=== PATIENT | female | born 1935 | race Caucasian/White ===

== ENCOUNTER 2022-05-23 13:16 | Inpatient (IN) ==
--- NOTE | 2022-05-23 14:12 | XRay Report ---
INDICATION: cough TECHNIQUE: AP portable semiupright chest x-ray COMPARISON: Previous chest x-rays dated 10/07/2010, 10/02/2009 FINDINGS: Lungs:Mild bilateral, bibasilar infiltrates. Findings may be due to volume loss. Pneumonia is possible. No focal parenchymal consolidation or mass. Heart, vascular:No significant cardiomegaly. Pulmonary vascularity is normal. No pulmonary edema or pulmonary congestion Mediastinum, bernardo:No mediastinal widening. No hilar mass Pleura:No pleural fluid. No pleural-based mass or calcification Skeletal:Negative. IMPRESSION: Bibasilar parenchymal density are consistent with volume loss or pneumonia. Follow-up recommended Interpreted and Authenticated by: Bishop Camejo 05/23/22
[2022-05-23] MEDS ORDERED: SODIUM CHLORIDE IV ONE (14:15)
[2022-05-23] MEDS ORDERED: cefTRIAXone 2 GM in DEXTROSE 5% IN WATER 50 ML IV ONE (14:15)
[2022-05-23] MEDS ORDERED: AZITHROMYCIN 500 MG in DEXTROSE 5% IN WATER 250 ML IV ONE (14:15)
[2022-05-23] MEDS ORDERED: IPRATROPIUM/ALBUTEROL 3 ML AMPUL.NEB NEB ONE ×2 (14:15→19:11)
[2022-05-23 14:18] LABS: POC Calcium, Ionized 1.07 (1.16-1.32); POC Creatinine 0.4 (0.6-1.2); POC Potassium 4.3 (3.3-5.1)
[2022-05-23] MEDS ORDERED: KETOROLAC 30 MG/ML VIAL IV ONE (14:43)
--- NOTE | 2022-05-23 14:52 | Emergency Department Note ---
HPI General Chief complaint: Cold/Flu Symptoms Stated complaint: Cough Time Seen by Provider: 05/23/22 13:47 Source: patient Mode of arrival: ambulatory Limitations: no limitations History of Present Illness HPI Narrative: Narrative: Patient presents to ED with complaints of flulike symptoms x4 days. She reports cough, sputum production that is abdul, shortness of breath and decreased energy. She denies any known sick contacts, vomiting, diarrhea, abdominal pain, wheezing, stridor, cardiac chest pain, heart palpitation, hemoptysis, headache, vision changes. She denies any [id number] medication. Patient has any other alleviating or aggravating factors Related Data Home Medications Medication Instructions Recorded Confirmed aspirin 325 mg tablet 325 mg PO QDAY 10/24/15 04/29/22 cyanocobalamin (vitamin B-12) 500 500 mcg PO QDAY 10/24/15 04/29/22 mcg tablet (Vitamin B-12) flaxseed oil 1,000 mg capsule 1,000 mg PO 5XD 10/24/15 04/29/22 verapamil 240 mg tablet,extended 240 mg PO QPM 10/22/21 04/29/22 release vitamins A,C,H-vlrt-ecnhrd 14,320 1 cap PO BID 10/22/21 04/29/22 unit-226 mg-200 unit capsule (PreserVision AREDS) Previous Rx's Medication Instructions Recorded Poise Pads #180 ea 04/09/21 rosuvastatin 10 mg tablet See Rx Instructions .Route 03/20/22 .COMPLEX #90 tabs Allergies Allergy/AdvReac Type Severity Reaction Status Date / Time atorvastatin [From Lipitor] AdvReac Unknown Myalgia Verified 04/29/22 10:33 codeine AdvReac Unknown Unknown Verified 04/29/22 10:33 Review of Systems ROS ROS Narrative: Narrative: All systems ED: reviewed and negative except as stated. [facility] Narrative Patient History Narrative: Narrative: Medical/Surgical/Family History All Active Problems (Updated 05/23/22 @ 16:54 by Tone Leos DO) Bilateral pneumonia (Acute) Acute respiratory failure with hypoxia (Acute) Sepsis (Acute) Abrasion, right great toe, initial encounter (Acute) Need for assistance due to unsteady gait (Chronic) Urine incontinence (Chronic) Arthritis (Chronic) Spondylolisthesis (Chronic) Obesity (BMI 30-39.9) (Chronic) DDD (degenerative disc disease), lumbar (Chronic) HTN (hypertension) (Chronic) Acquired spondylolisthesis (Chronic) Hyponatremia (Chronic) Anemia (Chronic) BMI 34.0-34.9,adult (Chronic) Peripheral vascular disease (Chronic) Osteopenia (Chronic) Osteoarthritis (Chronic) Obesity (Chronic) Macrocytosis (Chronic) Factor V Leiden mutation (Chronic) Kyphosis (Chronic) Essential hypertension (Chronic) Hyperlipidemia (Chronic) Hypercalcemia (Chronic) Diabetes mellitus, type II (Chronic) Back pain (Chronic) Medical History Acquired spondylolisthesis Actinic keratosis x2 Anemia Arthritis Back pain low back pain with left leg sciatic Blood glucose elevated BMI 34.0-34.9,adult Bronchitis Candidal intertrigo resolved -10/16/20 Colon adenoma remote Declines colonoscopy -04/09/21 Contusion (04/29/13) right hand DDD (degenerative disc disease), lumbar Diabetes mellitus, type II Diet controlled -10/16/20, 04/09/21 -5.7% 10/22/21 A1c 5.4% -10/16/20 Dysmetabolic syndrome X Dyspnea Essential hypertension Factor V Leiden mutation Fatigue Frequent headaches Gastroenteritis HTN (hypertension) Hypercalcemia Hyperlipidemia Hyponatremia Kyphosis Macrocytosis Obesity Obesity (BMI 30-39.9) Osteoarthritis Osteopenia Peripheral vascular disease Proteinuria Reactive airway disease Sciatica of left side Spondylolisthesis Unspecified sinusitis (chronic) Urine incontinence stress, urgency -10/16/20 Decline medication trial for fear of side effects Pads UTI (urinary tract infection) Surgical History History of cataract surgery bilateral History of cholecystectomy (~2000) History of colonoscopy (09/12/08) Hyperplastic polyp History of left hip replacement 1997 and 2000, bilateral - [facility] History of right hip replacement 1997 and 1999, bilateral - [facility] Status post biopsy of skin (05/09/13) Hypertrophic Actinic Keratosis 07/25/13 -Right jaw: Dermal Scar Status post left knee replacement 2018, total - [facility] Status post right knee replacement (~1999) 1998, total - [facility] Family History Unknown Coronary artery disease Factor V Leiden mutation 3 of her 6 children have it and likely that a granddaughter at age 10 from this Pulmonary embolism Premature secondary to Pulmonary Embolus Father Myocardial Infarction Mother Malignant neoplasm of pancreas Social History Smoking Status: Never smoker Alcohol Intake Frequency: does not drink Substance Use: does not use Exam Narrative Narrative: Narrative: General Limitations: no limitations General appearance: Present in no apparent distress ENT ENT: Present normal oropharynx and mucous membranes moist Neck Neck: Present normal inspection; Absent meningismus Chest Chest: Present normal inspection; Absent tenderness Respiratory Respiratory: Present normal lung sounds bilaterally; Absent respiratory distress or wheezes Cardiovascular Cardiovascular: Present normal rhythm and tachycardia Adbominal Abdominal: Present soft; Absent tenderness Extremities Extremities: Present normal capillary refill Neurological Neurological: Present oriented X3 and normal gait Psychiatric Psychiatric: Present normal affect and normal mood Skin Skin: Present warm (WNL) and intact Course Course Course Narrative: Patient was evaluated for complaints of shortness of breath. Negative for COVID and for flu. Chest x-ray obtained with image reviewed myself which show bilateral basilar pneumonia. Blood cultures were obtained. Patient was given IV Rocephin azithromycin. Lactic acid was elevated so patient was bolused some IV fluids. After fluids patient's lactic acid returned within normal limits. Patient was given a breathing treatment but unfortunately her oxygen saturation continued to drop to 87% on room air. She required 1 L of oxygen via nasal cannula. Recommended patient be admitted for acute hypoxic respiratory failure secondary to pneumonia with sepsis. Case was discussed with hospitalist agreed to admit the patient. Plan of care was discussed with patient expressed verbal understanding agreement Reevaluation(s) Reevaluation #1: Patient remains hemodynamic stable. No new complaints at this time. Time: 14:45 Consultations Consultation #1: Case discussed with hospitalist was agreed to admit the patient. Time: 16:54 Vital Signs Vital signs: Vital Signs Temperature 99.4 F H 05/23/22 13:31 Pulse Rate 100 H 05/23/22 13:31 Respiratory Rate 14 05/23/22 13:31 Blood Pressure 157/69 05/23/22 13:31 Pulse Oximetry (%) 89 L 05/23/22 13:31 Oxygen Delivery Method 05/23/22 13:31 Temperature 99.4 F H 05/23/22 13:31 Pulse Rate 86 05/23/22 16:49 Respiratory Rate 14 05/23/22 13:31 Blood Pressure 133/59 05/23/22 16:49 Pulse Oximetry (%) 87 L 05/23/22 16:49 Oxygen Delivery Method 05/23/22 16:16 Oxygen Flow Rate (L/min) 1 05/23/22 16:16 MDM MDM Narrative Medical decision making narrative: Narrative: Differential Diagnosis Differential Diagnosis: Viral URI, pneumonia, PE Medical Records Medical records reviewed: Yes I reviewed the patient's medical records. Lab Data Lab results reviewed: Yes I reviewed the patient's lab results. Result diagrams: 05/23/22 14:12 Labs: Lab Results 05/23/22 05/23/22 05/23/22 Range/Units 14:12 14:12 14:13 WBC 12.4 H (4.5-11.0) K/mcL RBC 4.08 (3.59-5.38) M/mcL Hgb 13.6 (11.2-15.7) g/dL Hct 40.3 (34.1-44.9) % POC Hct 42.0 (36-48) MCV 98.8 (80.0-100.0) fL MCH 33.3 (26.0-34.0) pg MCHC 33.7 (31.0-36.0) g/dL RDW 12.0 (11.5-14.5) % Plt Count 361 (140-440) K/mcL MPV 10.2 (8.8-12.5) fL Immature Gran % (Auto) 0.8 H (0.0-0.5) % Neut % (Auto) 83.2 H (38.0-78.0) % Lymph % (Auto) 5.8 L (15.5-49.0) % [place] % (Auto) 10.0 (1.0-12.0) % Eos % (Auto) 0 (0.0-7.0) % Baso % (Auto) 0.2 (0.0-2.0) % Lymph # (Auto) 0.72 L (1.50-4.80) K/mcL [place] # (Auto) 1.23 H (0.10-0.90) K/mcL Eos # (Auto) 0 (0.00-0.70) K/mcL Baso # (Auto) 0.03 (0.00-0.30) K/mcL Immature Gran # 0.10 H (0.00-0.05) K/mcl Absolute Neutrophils 10.28 H (1.80-8.00) K/mcL POC VBG pH 7.48 H (7.32-7.42) POC VBG pCO2 at Temp 40.0 L (41-51) POC VBG pO2 39 (25-40) POC VBG HCO3 30.1 H (24-28) POC VBG Total CO2 31.0 H (25-29) POC Venous O2 Sat 77.0 H (40-70) POC VBG Base Excess 7.0 H* (-2-2) VBG Lactic Acid 2.4 H (0.5-2) POC Sodium 133 (133-145) POC Potassium 4.3 (3.3-5.1) POC Chloride 98 (96-108) POC Total CO2 28.0 (22-30) POC BUN 20 (6-20) POC Creatinine 0.4 L (0.6-1.2) POC Glucose 171 H (70-105) POC WB Ioniz Calcium 1.07 L (1.16-1.32) 05/23/22 Range/Units 16:36 WBC (4.5-11.0) K/mcL RBC (3.59-5.38) M/mcL Hgb (11.2-15.7) g/dL Hct (34.1-44.9) % POC Hct (36-48) MCV (80.0-100.0) fL MCH (26.0-34.0) pg MCHC (31.0-36.0) g/dL RDW (11.5-14.5) % Plt Count (140-440) K/mcL MPV (8.8-12.5) fL Immature Gran % (Auto) (0.0-0.5) % Neut % (Auto) (38.0-78.0) % Lymph % (Auto) (15.5-49.0) % [place] % (Auto) (1.0-12.0) % Eos % (Auto) (0.0-7.0) % Baso % (Auto) (0.0-2.0) % Lymph # (Auto) (1.50-4.80) K/mcL [place] # (Auto) (0.10-0.90) K/mcL Eos # (Auto) (0.00-0.70) K/mcL Baso # (Auto) (0.00-0.30) K/mcL Immature Gran # (0.00-0.05) K/mcl Absolute Neutrophils (1.80-8.00) K/mcL POC VBG pH 7.39 (7.32-7.42) POC VBG pCO2 at Temp 41.1 (41-51) POC VBG pO2 42 H (25-40) POC VBG HCO3 24.8 (24-28) POC VBG Total CO2 26.0 (25-29) POC Venous O2 Sat 76.0 H (40-70) POC VBG Base Excess 0 (-2-2) VBG Lactic Acid 0.8 (0.5-2) POC Sodium (133-145) POC Potassium (3.3-5.1) POC Chloride (96-108) POC Total CO2 (22-30) POC BUN (6-20) POC Creatinine (0.6-1.2) POC Glucose (70-105) POC WB Ioniz Calcium (1.16-1.32) ED POC Tests ED POC Tests: JEFERSON - Influenza A Negative JEFERSON - Influenza B Negative JEFERSON - SARS Antigen Negative Radiology Data Radiology results reviewed: Yes I reviewed the patient's radiology results. Radiology results narrative: Chest x-ray obtained with image reviewed myself, I agree with radiologist rotation EKG Data EKG #1: EKG attestation: Yes I reviewed and interpreted this EKG. EKG shows normal: sinus rhythm Rate: normal Rhythm: NSR Hanahan/QRS: RBBB and LAHB/LAFB Heart block present: None ST segment elevation in: None ST segment depression in: None QTc: normal QRS morphology: Present normal Interpretation: no acute changes Core Measures AMI Core Measures Followed: Yes Discharge Plan Patient/Caregiver Discharge Instructions Pt seen by PET ADOPTION COUNSELOR/PA only: No Clinical Impression: Acute respiratory failure with hypoxia Bilateral pneumonia Qualifiers: Pneumonia type: due to unspecified organism Lung location: unspecified part of lung Qualified Code(s): J18.9 - Pneumonia, unspecified organism Sepsis Qualifiers: Sepsis type: sepsis due to unspecified organism Sepsis acute organ dysfunction status: with acute organ dysfunction Severe sepsis acute organ dysfunction type: acute respiratory failure Acute respiratory failure type: with hypoxia Severe sepsis shock status: without septic shock Qualified Code(s): A41.9 - Sepsis, unspecified organism Patient Disposition: Xfer As Outpt/Obs ([facility]) Condition: Fair Follow up with: Moriah Puentes ARNP [Primary Care Provider] - Prescriptions: No Action rosuvastatin 10 mg tablet See Rx Instructions .ROUTE .COMPLEX Qty: 90 3RF Dose Instruction: TAKE ONE TABLET BY MOUTH AT BEDTIME Rx Instructions: TAKE ONE TABLET BY MOUTH AT BEDTIME aspirin 325 mg tablet 325 mg PO QDAY flaxseed oil 1,000 mg capsule 1,000 mg PO 5XD cyanocobalamin (vitamin B-12) [Vitamin B-12] 500 mcg tablet 500 mcg PO QDAY (DME) Poise Pads See Rx Instructions .Route .MEDSUPPLY Qty: 180 3RF Rx Instructions: Change when soiled verapamil 240 mg tablet extended release 240 mg PO QPM PreserVision AREDS [id number] capsule 1 cap PO BID
[2022-05-23 15:50] LABS: Basophils # (Auto) 0.03 K/mcL (0.00-0.30); Basophils % (Auto) 0.2 % (0.0-2.0); Eosinophils # (Auto) 0 K/mcL (0.00-0.70); Eosinophils % (Auto) 0 % (0.0-7.0); Hematocrit 40.3 % (34.1-44.9); Hemoglobin 13.6 g/dL (11.2-15.7); Lymphocytes # (Auto) 0.72 K/mcL (1.50-4.80); Lymphocytes % (Auto) 5.8 % (15.5-49.0); Mean Cell Volume 98.8 fL (80.0-100.0); Mean Corpuscular HGB Conc 33.7 g/dL (31.0-36.0); Mean Platelet Volume 10.2 fL (8.8-12.5); Monocytes # (Auto) 1.23 K/mcL (0.10-0.90); Neutrophils % (Auto) 83.2 % (38.0-78.0); Platelet Count 361 K/mcL (140-440); RBC 4.08 M/mcL (3.59-5.38); WBC 12.4 K/mcL (4.5-11.0)
--- NOTE | 2022-05-23 16:57 | Internal Med History&Physical ---
HPI History of Present Illness Patient information: Note initiated : 05/23/22 at 4:57 pm Service Date, if different from initiated Date: [] Patient: Linden Galeana a 86 y/o F admitted on for Cough. Chief Complaint: [] History of present illness: Ms. Galeana is a 86 year old F Presents the ED with weakness, shortness of breath, productive cough. Patient states that Thursday she started developing cold symptoms which had progressively gotten worse. She has developed cough productive yellow-green sputum, she developed shortness of breath and increasing weakness. She said family members have been ill recently as well. Work-up in the ED revealed bilateral pneumonia. She she had initial lactate of 2.4. She was hypoxic and 87%. She had a mild leukocytosis. Elevated BUN to creatinine ratio. And tachycardic. Patient started on IV fluids and antibiotics in ED. Follow-up lactate. Review of Systems: Pertinent positives as above. Denies headache/fever/chills/nausea/vomiting/chest or abdominal pain/diarrhea. Remaining 10 point review of system reviewed negative PFSH PFSH All Active Problems (Updated 05/23/22 @ 16:54 by Tone Leos DO) Bilateral pneumonia (Acute) Acute respiratory failure with hypoxia (Acute) Sepsis (Acute) Abrasion, right great toe, initial encounter (Acute) Need for assistance due to unsteady gait (Chronic) Urine incontinence (Chronic) Arthritis (Chronic) Spondylolisthesis (Chronic) Obesity (BMI 30-39.9) (Chronic) DDD (degenerative disc disease), lumbar (Chronic) HTN (hypertension) (Chronic) Acquired spondylolisthesis (Chronic) Hyponatremia (Chronic) Anemia (Chronic) BMI 34.0-34.9,adult (Chronic) Peripheral vascular disease (Chronic) Osteopenia (Chronic) Osteoarthritis (Chronic) Obesity (Chronic) Macrocytosis (Chronic) Factor V Leiden mutation (Chronic) Kyphosis (Chronic) Essential hypertension (Chronic) Hyperlipidemia (Chronic) Hypercalcemia (Chronic) Diabetes mellitus, type II (Chronic) Back pain (Chronic) Medical History Acquired spondylolisthesis Actinic keratosis x2 Anemia Arthritis Back pain low back pain with left leg sciatic Blood glucose elevated BMI 34.0-34.9,adult Bronchitis Candidal intertrigo resolved -10/16/20 Colon adenoma remote Declines colonoscopy -04/09/21 Contusion (04/29/13) right hand DDD (degenerative disc disease), lumbar Diabetes mellitus, type II Diet controlled -10/16/20, 04/09/21 -5.7% 10/22/21 A1c 5.4% -10/16/20 Dysmetabolic syndrome X Dyspnea Essential hypertension Factor V Leiden mutation Fatigue Frequent headaches Gastroenteritis HTN (hypertension) Hypercalcemia Hyperlipidemia Hyponatremia Kyphosis Macrocytosis Obesity Obesity (BMI 30-39.9) Osteoarthritis Osteopenia Peripheral vascular disease Proteinuria Reactive airway disease Sciatica of left side Spondylolisthesis Unspecified sinusitis (chronic) Urine incontinence stress, urgency -10/16/20 Decline medication trial for fear of side effects Pads UTI (urinary tract infection) Surgical History History of cataract surgery bilateral History of cholecystectomy (~2000) History of colonoscopy (09/12/08) Hyperplastic polyp History of left hip replacement 1997 and 2000, bilateral - [facility] History of right hip replacement 1997 and 1999, bilateral - [facility] Status post biopsy of skin (05/09/13) Hypertrophic Actinic Keratosis 07/25/13 -Right jaw: Dermal Scar Status post left knee replacement 2018, total - [facility] Status post right knee replacement (~1999) 1998, total - [facility] Family History Unknown Coronary artery disease Factor V Leiden mutation 3 of her 6 children have it and likely that a granddaughter at age 10 from this Pulmonary embolism Premature secondary to Pulmonary Embolus Father Myocardial Infarction Mother Malignant neoplasm of pancreas Social History household members: spouse housing: house lives independently: Yes marital status: occupational status: retired occupation: Hairdresser-retired physical activity: none smoking status: Never smoker alcohol intake frequency: does not drink substance use type: does not use MEDS/ALLERGIES Home Medications and Allergies Home Medications Medication Instructions Recorded Confirmed Type aspirin 325 mg tablet 325 mg PO QDAY 10/24/15 05/23/22 History cyanocobalamin (vitamin B-12) 500 500 mcg PO QDAY 10/24/15 05/23/22 History mcg tablet (Vitamin B-12) flaxseed oil 1,000 mg capsule 1,000 mg PO 5XD 10/24/15 05/23/22 History Poise Pads #180 ea 04/09/21 05/23/22 Rx verapamil 240 mg tablet,extended 240 mg PO QPM 10/22/21 05/23/22 History release vitamins A,C,T-bkij-irxhyt 14,320 1 cap PO BID 10/22/21 05/23/22 History unit-226 mg-200 unit capsule (PreserVision AREDS) rosuvastatin 10 mg tablet See Rx Instructions .Route 03/20/22 05/23/22 Rx .COMPLEX #90 tabs Allergies Allergy/AdvReac Type Severity Reaction Status Date / Time atorvastatin [From Lipitor] AdvReac Unknown Myalgia Verified 04/29/22 10:33 codeine AdvReac Unknown Unknown Verified 04/29/22 10:33 EXAM Constitutional Vitals: Temp Pulse Resp BP Pulse Ox O2 Del Method O2 Flow Rate 99.4 F H 86 14 133/59 87 L 1 05/23/22 13:31 05/23/22 16:49 05/23/22 13:31 05/23/22 16:49 05/23/22 16:49 05/23/22 16:16 05/23/22 16:16 Exam: General: Alert, Awake, No acute Distress Eyes/N/T: EOMI, PERRL, dry MM Head/Neck: neck supple, normocephalic atraumatic CV: RRR, No murmurs, normal s1/s2 Pulm: Rhonchi and wheezing b/l, Abd: soft, nontender, +BS x4 Ext: no clubbing/cyanosis, mild b/l LE edema Neuro: Alert, no focal deficits, moves all extremities, CN 2-12 grossly intact, symmetrical strength b/l upper/lower, sensations intact b/l upper/lower Skin: warm/dry DATA Data Completed and Pending Labs: Labs from last 24 hours 05/23/22 05/23/22 05/23/22 16:36 14:13 14:12 WBC RBC Hgb Hct POC Hct 42.0 MCV MCH MCHC RDW Plt Count MPV Immature Gran % (Auto) Neut % (Auto) Lymph % (Auto) [place] % (Auto) Eos % (Auto) Baso % (Auto) Lymph # (Auto) [place] # (Auto) Eos # (Auto) Baso # (Auto) Immature Gran # Absolute Neutrophils POC VBG pH 7.39 7.48 H POC VBG pCO2 at Temp 41.1 40.0 L POC VBG pO2 42 H 39 POC VBG HCO3 24.8 30.1 H POC VBG Total CO2 26.0 31.0 H POC Venous O2 Sat 76.0 H 77.0 H POC VBG Base Excess 0 7.0 H* VBG Lactic Acid 0.8 2.4 H POC Sodium 133 POC Potassium 4.3 POC Chloride 98 POC Total CO2 28.0 POC BUN 20 POC Creatinine 0.4 L POC Glucose 171 H POC WB Ioniz Calcium 1.07 L 05/23/22 14:12 WBC 12.4 H RBC 4.08 Hgb 13.6 Hct 40.3 POC Hct MCV 98.8 MCH 33.3 MCHC 33.7 RDW 12.0 Plt Count 361 MPV 10.2 Immature Gran % (Auto) 0.8 H Neut % (Auto) 83.2 H Lymph % (Auto) 5.8 L [place] % (Auto) 10.0 Eos % (Auto) 0 Baso % (Auto) 0.2 Lymph # (Auto) 0.72 L [place] # (Auto) 1.23 H Eos # (Auto) 0 Baso # (Auto) 0.03 Immature Gran # 0.10 H Absolute Neutrophils 10.28 H POC VBG pH POC VBG pCO2 at Temp POC VBG pO2 POC VBG HCO3 POC VBG Total CO2 POC Venous O2 Sat POC VBG Base Excess VBG Lactic Acid POC Sodium POC Potassium POC Chloride POC Total CO2 POC BUN POC Creatinine POC Glucose POC WB Ioniz Calcium A/P Narrative A/P Narrative: A: *Acute hypoxic respiratory failure: 2/2 PNA *PNA b/l: *Sepsis w/hyperlactatemia: *Generalized weakness: 2/2 above *Volume depletion: *HTN/HLD: Blood pressure elevated on admit *Obesity: BMI 32, lifestyle modification education * P: -Rocephin/azithromycin, pending SC -Strep/RVP pending, pct pending -O2 supplementation and wean as able -Pulmonary toilet, nebs -IVF -BC/chemistry follow-up -Continue home verapamil, prn IV -cont home aspirin/statin -PT/OT -ppx: Lovenox Time Spent With Patient Time: Total time spent is greater than 50% in coordination of care (as documented) at patient's floor/unit and/or counseling patient: Total time spent with greater than 50% in coordination of care (as documented) at patient's floor/unit and/or counseling patient:: Greater than 70 minutes
[2022-05-23] MEDS ORDERED: SENNOSIDES 1 TABLET PO PRN (19:11)
[2022-05-23] MEDS ORDERED: MAGNESIUM SULFATE 2 GM/50 ML BAG IV PRN (19:11)
[2022-05-23] MEDS ORDERED: cefTRIAXone 1 GM in DEXTROSE 5% IN WATER 50 ML IV SCH (19:11)
[2022-05-23] MEDS ORDERED: POLYETHYLENE GLYCOL 3350 17 GM PACKET PO PRN (19:11)
[2022-05-23] MEDS ORDERED: POTASSIUM CHLORIDE 40 MEQ in DEXTROSE 5% IN WATER 500 ML IV PRN (19:11)
[2022-05-23] MEDS ORDERED: ONDANSETRON 4 MG/2 ML VIAL IV PRN (19:11)
[2022-05-23] MEDS ORDERED: POTASSIUM CHLORIDE 20 MEQ TABLET PO PRN ×2 (19:11)
[2022-05-23] MEDS: 0.9 % SODIUM CHLORIDE 10 ML SYRINGE IV SCH (20:03)
[2022-05-23] MEDS: ATORVASTATIN 20 MG TABLET PO SCH (20:04)
[2022-05-23] MEDS: VERAPAMIL 120 MG TAB.XL.24H PO SCH (20:11)
[2022-05-23] MEDS: DOCUSATE SODIUM 100 MG CAPSULE PO SCH (20:12)
[2022-05-24] MEDS: ACETAMINOPHEN 325 MG TABLET PO PRN ×2 (04:57→20:56)
[2022-05-24] MEDS: 0.9 % SODIUM CHLORIDE 10 ML SYRINGE IV SCH ×3 (04:58→20:59)
[2022-05-24 06:59] LABS: ALT/SGPT 171 U/L (<40); AST/SGOT 162 U/L (<32); Albumin 2.6 gm/dL (3.2-5.2); Albumin/Globulin Ratio 0.7 (1.0-2.3); Alkaline Phosphatase 337 U/L (39-117); Bilirubin,Total 3.7 mg/dL (0.1-1.0); Blood Urea Nitrogen 13 mg/dL (8-23); Carbon Dioxide 24 mmol/L (22-30); Chloride 98 mmol/L (96-108); Globulin 3.7 gm/dL (2.2-3.7); Glomerular Filtration Rate 95; Glucose 114 mg/dL (70-105); Lactate Dehydrogenase 261 U/L (135-225); Phosphorous 1.9 mg/dL (2.5-4.5); Triglycerides 60 mg/dL (<150); Uric Acid 2.8 mg/dL (2.5-8.0)
[2022-05-24 07:12] LABS: Basophils # (Auto) 0.05 K/mcL (0.00-0.30); Basophils % (Auto) 0.5 % (0.0-2.0); Eosinophils # (Auto) 0.03 K/mcL (0.00-0.70); Eosinophils % (Auto) 0.3 % (0.0-7.0); Hematocrit 38.3 % (34.1-44.9); Lymphocytes # (Auto) 1.34 K/mcL (1.50-4.80); Mean Cell Volume 100.8 fL (80.0-100.0); Mean Corpuscular HGB Conc 33.9 g/dL (31.0-36.0); Mean Platelet Volume 9.9 fL (8.8-12.5); Monocytes # (Auto) 1.17 K/mcL (0.10-0.90); Monocytes % (Auto) 11.3 % (1.0-12.0); Platelet Count 260 K/mcL (140-440); Red Cell Distribution Width 12.5 % (11.5-14.5); WBC 10.3 K/mcL (4.5-11.0)
--- NOTE | 2022-05-24 08:02 | Internal Med Progress Note ---
SUBJECTIVE Subjective Patient information: Note initiated : 05/24/22 at 7:56 am Service Date, if different from initiated Date: [] Patient: Linden Galeana 86 y/o F admitted on 05/23/22 for Cough. Chief Complaint: [] Interval history: History of present illness: Ms. Galeana is a 86 year old F Presents the ED with weakness, shortness of breath, productive cough. Patient states that Thursday she started developing cold symptoms which had progressively gotten worse. She has developed cough productive yellow-green sputum, she developed shortness of breath and increasing weakness. She said family members have been ill recently as well. Work-up in the ED revealed bilateral pneumonia. She she had initial lactate of 2.4. She was hypoxic and 87%. She had a mild leukocytosis. Elevated BUN to creatinine ratio. And tachycardic. Patient started on IV fluids and antibiotics in ED. Follow-up lactate. 05/24 Had on and off sleep last night. Still requiring oxygen. She denies shortness of breath at rest still has productive cough. Transaminitis noted. Including hyperbilirubinemia mostly conjugated. Low Phos. Appears quite tired. Review of Systems: denies headache/fever/chills/nausea/vomiting/chest or abdominal pain/diarrhea. Otherwise see above. Constitutional Vitals: Vital Signs Temp Pulse Resp BP Pulse Ox O2 Del Method O2 Flow Rate 97.0 F 84 12 144/77 92 1 05/24/22 07:34 05/24/22 07:34 05/24/22 07:34 05/24/22 07:34 05/24/22 07:34 05/24/22 07:34 05/24/22 07:34 Period Temp Pulse Resp BP Sys/Serrano Pulse Ox O2 Del Method O2 Flow Rate Last 24 Hr 97.0 F-99.5 F 82-100 - 95-167/53-85 87-100 Nasal Cannula- Room Air 1-1 Intake and Output 05/23/22 05/24/22 05/24/22 19:59 03:59 11:59 Intake Total 1805 400 350 Output Total 1 2 Balance 1805 399 348 Weight 82.055 kg Intake & Output: Intake & Output 05/23/22 05/24/22 05/24/22 19:59 03:59 11:59 Intake Total 1805 400 350 Output Total 1 2 Balance 1805 399 348 Weight 82.055 kg Intake: IV 1805 Sodium Chloride 0.9% 1,505 ml @ 1505 3010 mls/hr IV .Q30M ONE Rx#: [id number] Zithromax 500 mg In Dextrose 5% 250 in Water 250 ml @ 250 mls/hr IV ONCE ONE Rx#:[id number] Rocephin 2 gm In Dextrose 5% in 50 Water 50 ml @ 100 mls/hr IV ONCE ONE Rx#:[id number] Oral 400 350 Output: # of times incontinent of urine 1 2 Exam: General: Awake but appears fatigued, No acute Distress Eyes/N/T: EOMI, Head/Neck: neck supple, CV: RRR, No murmurs, Pulm: Rhonchi and wheezing b/l improving, Abd: soft, nontender, +BS x4 Ext: no clubbing/cyanosis, mild b/l LE edema Neuro: Alert, no focal deficits, moves all extremities, Skin: warm/dry OBJ DATA Labs CBC & Chem 7: 05/24/22 05:42 05/24/22 05:42 Labs: Abnormal Lab Results 05/24/22 05/24/22 05/23/22 05:42 05:42 16:36 WBC MCV 100.8 H MCH 34.2 H Immature Gran % (Auto) 0.9 H Neut % (Auto) Lymph % (Auto) 13.0 L Lymph # (Auto) 1.34 L Arroyo # (Auto) 1.17 H Immature Gran # 0.09 H Absolute Neutrophils POC VBG pH POC VBG pCO2 at Temp POC VBG pO2 42 H POC VBG HCO3 POC VBG Total CO2 POC Venous O2 Sat 76.0 H POC VBG Base Excess VBG Lactic Acid Creatinine 0.4 L POC Creatinine Glucose 114 H POC Glucose POC WB Ioniz Calcium Phosphorus 1.9 L Total Bilirubin 3.7 H Direct Bilirubin 3.0 H GGT 136 H AST 162 H ALT 171 H Alkaline Phosphatase 337 H Lactate Dehydrogenase 261 H Albumin 2.6 L Albumin/Globulin Ratio 0.7 L Procalcitonin 05/23/22 05/23/22 05/23/22 16:33 14:13 14:12 WBC MCV MCH Immature Gran % (Auto) Neut % (Auto) Lymph % (Auto) Lymph # (Auto) Arroyo # (Auto) Immature Gran # Absolute Neutrophils POC VBG pH 7.48 H POC VBG pCO2 at Temp 40.0 L POC VBG pO2 POC VBG HCO3 30.1 H POC VBG Total CO2 31.0 H POC Venous O2 Sat 77.0 H POC VBG Base Excess 7.0 H* VBG Lactic Acid 2.4 H Creatinine POC Creatinine 0.4 L Glucose POC Glucose 171 H POC WB Ioniz Calcium 1.07 L Phosphorus Total Bilirubin Direct Bilirubin GGT AST ALT Alkaline Phosphatase Lactate Dehydrogenase Albumin Albumin/Globulin Ratio Procalcitonin 0.42 H 05/23/22 14:12 WBC 12.4 H MCV MCH Immature Gran % (Auto) 0.8 H Neut % (Auto) 83.2 H Lymph % (Auto) 5.8 L Lymph # (Auto) 0.72 L Arroyo # (Auto) 1.23 H Immature Gran # 0.10 H Absolute Neutrophils 10.28 H POC VBG pH POC VBG pCO2 at Temp POC VBG pO2 POC VBG HCO3 POC VBG Total CO2 POC Venous O2 Sat POC VBG Base Excess VBG Lactic Acid Creatinine POC Creatinine Glucose POC Glucose POC WB Ioniz Calcium Phosphorus Total Bilirubin Direct Bilirubin GGT AST ALT Alkaline Phosphatase Lactate Dehydrogenase Albumin Albumin/Globulin Ratio Procalcitonin Meds: Medications Acetaminophen (Acetaminophen 325 Mg Tablet) 650 mg PO Q6HP PRN; Protocol PRN Reason: Per Pain Protocol/Fever > 101 Last Admin: 05/24/22 04:57 Dose: 650 mg Albuterol/Ipratropium (Ipratropium/Albuterol 3 Ml Ampul.Neb) 3 ml NEB Q4HP PRN PRN Reason: Shortness Of Breath Aspirin (Aspirin 81 Mg Tab.Chew) 81 mg PO DAILY [facility] Atorvastatin Calcium (Atorvastatin 20 Mg Tablet) 20 mg PO HS [facility] Last Admin: 05/23/22 20:04 Dose: Not Given Ceftriaxone Sodium (Ceftriaxone 1 Gm Vial) 1 gm IV Q24H [facility] Cyanocobalamin (Cyanocobalamin (Vitamin B-12) 500 Mcg Tablet) 500 mcg PO QDAY [facility] Docusate Sodium (Docusate Sodium 100 Mg Capsule) 100 mg PO BID [facility] Last Admin: 05/23/22 20:12 Dose: 100 mg Potassium Chloride 40 meq/ (Dextrose) 520 mls @ 130 mls/hr IV UD PRN PRN Reason: Potassium < 3 Magnesium Sulfate (Magnesium Sulfate) 2 gm in 50 mls @ 50 mls/hr IV UD PRN PRN Reason: Magnesium </= 1.6 Azithromycin 500 mg/ Dextrose 250 mls @ 250 mls/hr IV Q24H [facility]; Protocol Stop: 05/25/22 11:59 Labetalol HCl (Labetalol 5 Mg/Ml Ml) 0 mg IV Q2HP PRN PRN Reason: Hypertension Ondansetron HCl (Ondansetron 4 Mg/2 Ml Vial) 4 mg IV Q4HP PRN PRN Reason: Nausea And Vomiting Polyethylene Glycol (Polyethylene Glycol 3350 17 Gm Packet) 17 gm PO DAILYP PRN PRN Reason: Constipation Potassium Chloride (Potassium Chloride 20 Meq Tablet) 40 meq PO UD PRN PRN Reason: Potssium is 3-3.5 Potassium Chloride (Potassium Chloride 20 Meq Tablet) 40 meq PO UD PRN PRN Reason: Potassium < 3 Senna (Sennosides 1 Tablet) 2 tab PO DAILYP PRN PRN Reason: Constipation Sodium Chloride (0.9 % Sodium Chloride 10 Ml Syringe) 10 ml IV Q8 [facility] Last Admin: 05/24/22 04:58 Dose: 10 ml Verapamil HCl (Verapamil 120 Mg Tab.Xl.24h) 240 mg PO HS [facility] Last Admin: 05/23/22 20:11 Dose: 240 mg A/P Narrative A/P Narrative: A: *Acute hypoxic respiratory failure: 2/2 PNA -now on 1L NC *PNA b/l: -elevated pct, strep neg *Sepsis w/hyperlactatemia: -improving *Generalized weakness: 2/2 above *Volume depletion: *HTN/HLD: Blood pressure elevated on admit *Obesity: BMI 32, lifestyle modification education *Macrocytosis: *Hypophosphatemia: *Transaminitis: P: -Rocephin/azithromycin, pending SC -pct pending -O2 supplementation and wean as able -Pulmonary toilet, nebs -BC/chemistry follow-up, monitor replace electrolytes -Check B12/folate -Hepatitis and liver ultrasound -Continue home verapamil, prn IV -cont home aspirin/statin -PT/OT -ppx: Lovenox Time Spent With Patient Time: Total time spent is greater than 50% in coordination of care (as documented) at patient's floor/unit and/or counseling patient: Total time spent with greater than 50% in coordination of care (as documented) at patient's floor/unit and/or counseling patient:: 35 - 50 minutes QUALITY VTE Deep Vein Thrombosis/Pulmonary Embolism Present on Admission: No
--- NOTE | 2022-05-24 10:12 | Discharge Summary ---
Discharge Provider Provider IMPORTANT FOLLOW-UP INFORMATION FOR PCP: Patient information: Note initiated : 05/24/22 at 10:11 am Service Date, if different from initiated Date: [] Patient: Linden Galeana 86 y/o F admitted on 05/23/22 for Cough. Chief Complaint: [] Date of admission: 05/23/22 19:00 Primary care physician: TERRIE aFirbanks Consults: 05/23/22 Consult to Physician [CONS] Stat Comment: Consulting Provider: [facility] [place] Reason For Exam: Physician to Consult COURSE Hospital Course Hospital course: History of present illness: Ms. Galeana is a 86 year old F Presents the ED with weakness, shortness of breath, productive cough. Patient states that Thursday she started developing cold symptoms which had progressively gotten worse. She has developed cough productive yellow-green sputum, she developed shortness of breath and increasing weakness. She said family members have been ill recently as well. Work-up in the ED revealed bilateral pneumonia. She she had initial lactate of 2.4. She was hypoxic and 87%. She had a mild leukocytosis. Elevated BUN to creatinine ratio. And tachycardic. Patient started on IV fluids and antibiotics in ED. Follow-up lactate. 05/24 Had on and off sleep last night. Still requiring oxygen. She denies shortness of breath at rest still has productive cough. Transaminitis noted. Including hyperbilirubinemia mostly conjugated. Low Phos. Appears quite tired. 05/25 Patient still feels quite weak and fatigued. Minimal oxygen requirement. We will hopefully wean off today. Still productive cough. Poor sleep last night. Hypophosphatemia transaminitis mildly improved. Suspect patient will need rehab. A: *Acute hypoxic respiratory failure: 2/2 PNA *PNA b/l: *Sepsis w/hyperlactatemia: *Generalized weakness: 2/2 above *Volume depletion: *HTN/HLD: Blood pressure elevated on admit *Obesity: BMI 32, lifestyle modification education *Macrocytosis: *Hypophosphatemia: *Transaminitis: P: -Abx Discharge diagnosis: Acute toxic respiratory failure pneumonia sepsis Secondary discharge diagnosis: Generalized weakness following depletion hypertension obesity macrocytosis hypophosphatemia transaminitis Time Spent with Patient Time attestation: Total time spent providing and/or coordinating discharge services: Time spent: Greater than 30 minutes EXAM Constitutional Vitals: Temp Pulse Resp BP Pulse Ox O2 Del Method O2 Flow Rate 97.0 F 84 12 144/77 92 1 05/24/22 07:34 05/24/22 07:34 05/24/22 07:34 05/24/22 07:34 05/24/22 07:34 05/24/22 07:34 05/24/22 07:34 Discharge Data Data Completed and Pending Labs on day of discharge: Labs from last 24 hours 05/24/22 05/24/22 05/24/22 08:27 08:25 08:25 WBC RBC Hgb Hct POC Hct MCV MCH MCHC RDW Plt Count MPV Immature Gran % (Auto) Neut % (Auto) Lymph % (Auto) Tate % (Auto) Eos % (Auto) Baso % (Auto) Lymph # (Auto) Tate # (Auto) Eos # (Auto) Baso # (Auto) Immature Gran # Absolute Neutrophils POC VBG pH POC VBG pCO2 at Temp POC VBG pO2 POC VBG HCO3 POC VBG Total CO2 POC Venous O2 Sat POC VBG Base Excess VBG Lactic Acid POC Sodium Sodium POC Potassium Potassium POC Chloride Chloride Carbon Dioxide POC Total CO2 Anion Gap POC BUN BUN Creatinine POC Creatinine GFR Calculation Glucose POC Glucose Uric Acid Calcium POC WB Ioniz Calcium Phosphorus Magnesium Total Bilirubin Direct Bilirubin GGT AST ALT Alkaline Phosphatase Lactate Dehydrogenase Total Protein Albumin Globulin Albumin/Globulin Ratio Triglycerides Vitamin B12 > 2000.0 H Folate 9.6 Procalcitonin Hepatitis A IgM Ab Pending Hep Bs Antigen Pending Hep B Core IgM Ab Pending Hepatitis C Antibody Pending Ur Strep pneumoniae Ag 05/24/22 05/24/22 05/24/22 05:42 05:42 05:42 WBC 10.3 RBC 3.80 Hgb 13.0 Hct 38.3 POC Hct MCV 100.8 H MCH 34.2 H MCHC 33.9 RDW 12.5 Plt Count 260 MPV 9.9 Immature Gran % (Auto) 0.9 H Neut % (Auto) 74.0 Lymph % (Auto) 13.0 L Tate % (Auto) 11.3 Eos % (Auto) 0.3 Baso % (Auto) 0.5 Lymph # (Auto) 1.34 L Tate # (Auto) 1.17 H Eos # (Auto) 0.03 Baso # (Auto) 0.05 Immature Gran # 0.09 H Absolute Neutrophils 7.63 POC VBG pH POC VBG pCO2 at Temp POC VBG pO2 POC VBG HCO3 POC VBG Total CO2 POC Venous O2 Sat POC VBG Base Excess VBG Lactic Acid POC Sodium Sodium 133 POC Potassium Potassium 3.6 POC Chloride Chloride 98 Carbon Dioxide 24 POC Total CO2 Anion Gap 11.0 POC BUN BUN 13 Creatinine 0.4 L POC Creatinine GFR Calculation 95 Glucose 114 H POC Glucose Uric Acid 2.8 Calcium 9.0 POC WB Ioniz Calcium Phosphorus 1.9 L Magnesium 2.0 Total Bilirubin 3.7 H Direct Bilirubin 3.0 H GGT 136 H AST 162 H ALT 171 H Alkaline Phosphatase 337 H Lactate Dehydrogenase 261 H Total Protein 6.3 Albumin 2.6 L Globulin 3.7 Albumin/Globulin Ratio 0.7 L Triglycerides 60 Vitamin B12 Folate Procalcitonin Hepatitis A IgM Ab Hep Bs Antigen Hep B Core IgM Ab Hepatitis C Antibody Ur Strep pneumoniae Ag Negative 05/23/22 05/23/22 05/23/22 17:50 16:36 16:33 WBC RBC Hgb Hct POC Hct MCV MCH MCHC RDW Plt Count MPV Immature Gran % (Auto) Neut % (Auto) Lymph % (Auto) Tate % (Auto) Eos % (Auto) Baso % (Auto) Lymph # (Auto) Tate # (Auto) Eos # (Auto) Baso # (Auto) Immature Gran # Absolute Neutrophils POC VBG pH 7.39 POC VBG pCO2 at Temp 41.1 POC VBG pO2 42 H POC VBG HCO3 24.8 POC VBG Total CO2 26.0 POC Venous O2 Sat 76.0 H POC VBG Base Excess 0 VBG Lactic Acid 1.2 0.8 POC Sodium Sodium POC Potassium Potassium POC Chloride Chloride Carbon Dioxide POC Total CO2 Anion Gap POC BUN BUN Creatinine POC Creatinine GFR Calculation Glucose POC Glucose Uric Acid Calcium POC WB Ioniz Calcium Phosphorus Magnesium Total Bilirubin Direct Bilirubin GGT AST ALT Alkaline Phosphatase Lactate Dehydrogenase Total Protein Albumin Globulin Albumin/Globulin Ratio Triglycerides Vitamin B12 Folate Procalcitonin 0.42 H Hepatitis A IgM Ab Hep Bs Antigen Hep B Core IgM Ab Hepatitis C Antibody Ur Strep pneumoniae Ag 05/23/22 05/23/22 05/23/22 14:13 14:12 14:12 WBC 12.4 H RBC 4.08 Hgb 13.6 Hct 40.3 POC Hct 42.0 MCV 98.8 MCH 33.3 MCHC 33.7 RDW 12.0 Plt Count 361 MPV 10.2 Immature Gran % (Auto) 0.8 H Neut % (Auto) 83.2 H Lymph % (Auto) 5.8 L Tate % (Auto) 10.0 Eos % (Auto) 0 Baso % (Auto) 0.2 Lymph # (Auto) 0.72 L Tate # (Auto) 1.23 H Eos # (Auto) 0 Baso # (Auto) 0.03 Immature Gran # 0.10 H Absolute Neutrophils 10.28 H POC VBG pH 7.48 H POC VBG pCO2 at Temp 40.0 L POC VBG pO2 39 POC VBG HCO3 30.1 H POC VBG Total CO2 31.0 H POC Venous O2 Sat 77.0 H POC VBG Base Excess 7.0 H* VBG Lactic Acid 2.4 H POC Sodium 133 Sodium POC Potassium 4.3 Potassium POC Chloride 98 Chloride Carbon Dioxide POC Total CO2 28.0 Anion Gap POC BUN 20 BUN Creatinine POC Creatinine 0.4 L GFR Calculation Glucose POC Glucose 171 H Uric Acid Calcium POC WB Ioniz Calcium 1.07 L Phosphorus Magnesium Total Bilirubin Direct Bilirubin GGT AST ALT Alkaline Phosphatase Lactate Dehydrogenase Total Protein Albumin Globulin Albumin/Globulin Ratio Triglycerides Vitamin B12 Folate Procalcitonin Hepatitis A IgM Ab Hep Bs Antigen Hep B Core IgM Ab Hepatitis C Antibody Ur Strep pneumoniae Ag Discharge Plan Patient/Caregiver Discharge Instructions Activity: increase activity as tolerated Diet: Regular Diet Prescriptions: Continued rosuvastatin 10 mg tablet See Rx Instructions .ROUTE .COMPLEX Qty: 90 3RF Dose Instruction: TAKE ONE TABLET BY MOUTH AT BEDTIME Rx Instructions: TAKE ONE TABLET BY MOUTH AT BEDTIME aspirin 325 mg tablet 325 mg PO QDAY flaxseed oil 1,000 mg capsule 1,000 mg PO 5XD cyanocobalamin (vitamin B-12) [Vitamin B-12] 500 mcg tablet 500 mcg PO QDAY (DME) Poise Pads See Rx Instructions .Route .MEDSUPPLY Qty: 180 3RF Rx Instructions: Change when soiled verapamil 240 mg tablet extended release 240 mg PO QPM PreserVision AREDS [id number],320-226-200 [id number] capsule 1 cap PO BID PreserVision AREDS 14,320-226-200 [id number] Capsule 1 cap PO DAILY Follow Up Plan Follow up with: Moriah Puentes ARNP [Primary Care Provider] - Patient Disposition: Home Health Service Prognosis: Fair Overall status at discharge: patient is progressing back to baseline QUALITY VTE Deep Vein Thrombosis/Pulmonary Embolism Present on Admission: No
[2022-05-24 10:15] LABS: Hepatitis B Surface Antigen Negative (Negative); Hepatitis C Virus Antibody Non-Reactive (Non-Reactive)
[2022-05-24] MEDS: CYANOCOBALAMIN (VITAMIN B-12) 500 MCG TABLET PO SCH (12:16)
[2022-05-24] MEDS: ASPIRIN 81 MG TAB.CHEW PO SCH (12:16)
[2022-05-24] MEDS: DOCUSATE SODIUM 100 MG CAPSULE PO SCH ×2 (12:17→20:56)
[2022-05-24] MEDS: cefTRIAXone 1 GM VIAL IV SCH (12:17)
[2022-05-24] MEDS: AZITHROMYCIN 500 MG in DEXTROSE 5% IN WATER 250 ML IV SCH (12:18)
--- NOTE | 2022-05-24 15:15 | Ultrasound Report ---
INDICATION: liver/GB - transaminitis, hyperbili TECHNIQUE: Grayscale and color flow Doppler spectral imaging COMPARISON: None. FINDINGS: Gallbladder:Previous cholecystectomy Common bile duct:No intra or extrahepatic bile duct dilatation.. Common bile duct measures3 mm Liver:No solid or cystic hepatic mass. Liver contour is smooth. No ascites. Liver is borderline enlarged. Liver [id number] cm Portal vein:Normal hepatopedal portal venous flow Pancreas:Visualized portions of the pancreas are normal IMPRESSION: 1. Previous cholecystectomy 2. No bile duct dilatation Interpreted and Authenticated by: Bishop Camejo 05/24/22
[2022-05-24] MEDS: BENZONATATE 100 MG CAPSULE PO PRN (19:07)
[2022-05-24] MEDS: ATORVASTATIN 20 MG TABLET PO SCH (19:25)
[2022-05-24] MEDS: IPRATROPIUM/ALBUTEROL 3 ML AMPUL.NEB NEB PRN (19:45)
[2022-05-24] MEDS ORDERED: SUCRETS LOZENGE PO ONE (20:42)
[2022-05-24] MEDS: VERAPAMIL 120 MG TAB.XL.24H PO SCH (20:56)
[2022-05-25] MEDS: BENZONATATE 100 MG CAPSULE PO PRN ×3 (02:03→18:01)
[2022-05-25] MEDS: LABETALOL 5 MG/ML ML IV PRN ×2 (04:20→17:58)
[2022-05-25] MEDS: 0.9 % SODIUM CHLORIDE 10 ML SYRINGE IV SCH ×4 (04:22→20:38)
[2022-05-25 07:23] LABS: ALT/SGPT 121 U/L (<40); AST/SGOT 70 U/L (<32); Albumin 2.4 gm/dL (3.2-5.2); Albumin/Globulin Ratio 0.7 (1.0-2.3); Alkaline Phosphatase 314 U/L (39-117); Bilirubin,Direct 0.6 mg/dL (<0.3); Blood Urea Nitrogen 9 mg/dL (8-23); Calcium 8.7 mg/dL (8.6-10.4); Carbon Dioxide 27 mmol/L (22-30); Chloride 97 mmol/L (96-108); Globulin 3.3 gm/dL (2.2-3.7); Glomerular Filtration Rate 95; Glucose 112 mg/dL (70-105); Lactate Dehydrogenase 177 U/L (135-225); Phosphorous 2.2 mg/dL (2.5-4.5); Triglycerides 111 mg/dL (<150); Uric Acid 2.7 mg/dL (2.5-8.0)
--- NOTE | 2022-05-25 07:49 | Internal Med Progress Note ---
SUBJECTIVE Subjective Patient information: Note initiated : 05/25/22 at 7:46 am Service Date, if different from initiated Date: [] Patient: Linden Galeana 86 y/o F admitted on 05/23/22 for Cough. Chief Complaint: [] Interval history: History of present illness: Ms. Galeana is a 86 year old F Presents the ED with weakness, shortness of breath, productive cough. Patient states that Thursday she started developing cold symptoms which had progressively gotten worse. She has developed cough productive yellow-green sputum, she developed shortness of breath and increasing weakness. She said family members have been ill recently as well. Work-up in the ED revealed bilateral pneumonia. She she had initial lactate of 2.4. She was hypoxic and 87%. She had a mild leukocytosis. Elevated BUN to creatinine ratio. And tachycardic. Patient started on IV fluids and antibiotics in ED. Follow-up lactate. 05/24 Had on and off sleep last night. Still requiring oxygen. She denies shortness of breath at rest still has productive cough. Transaminitis noted. Including hyperbilirubinemia mostly conjugated. Low Phos. Appears quite tired. 05/25 Patient still feels quite weak and fatigued. Minimal oxygen requirement. We will hopefully wean off today. Still productive cough. Poor sleep last night. Hypophosphatemia transaminitis mildly improved. Suspect patient will need rehab. Review of Systems: denies headache/fever/chills/nausea/vomiting/chest or abdominal pain/diarrhea. Otherwise see above. Constitutional Vitals: Vital Signs Temp Pulse Resp BP Pulse Ox O2 Del Method O2 Flow Rate 97.1 F 79 20 143/70 94 1 05/25/22 07:16 05/25/22 07:16 05/25/22 07:16 05/25/22 07:16 05/25/22 07:16 05/25/22 07:16 05/25/22 07:16 Period Temp Pulse Resp BP Sys/Serrano Pulse Ox O2 Del Method O2 Flow Rate Last 24 Hr 97.1 F-98.5 F 66-79 14-20 92-156/52-70 93-96 Nasal Cannula- Nasal Cannula 0.5-1 Intake and Output 05/24/22 05/25/22 05/25/22 19:59 03:59 11:59 Intake Total 490 500 400 Output Total 2 1 Balance 488 499 400 Weight 82.724 kg Intake & Output: Intake & Output 05/24/22 05/25/22 05/25/22 19:59 03:59 11:59 Intake Total 490 500 400 Output Total 2 1 Balance 488 499 400 Weight 82.724 kg Intake: IV 250 Zithromax 500 mg In Dextrose 5% 250 in Water 250 ml @ 250 mls/hr IV Q24H [facility] Rx#:[id number] Oral 240 500 400 Output: # of times incontinent of urine 2 1 Other: Meal Dinner Percent of Meal Consumed 100% Feeding Ability Assist with Tray Set Up Urine Appearance Clear Urine Color Yellow Stool Size Smear Smear Stool Color Brown Brown Stool Consistency Soft # of times incontinent of 1 1 Bowels Exam: General: Awake but appears weak/fatigued, No acute Distress Eyes/N/T: EOMI, Head/Neck: neck supple, CV: RRR, No murmurs, Pulm: Rhonchi and wheezing b/l Abd: soft, nontender, +BS x4 Ext: no clubbing/cyanosis, mild b/l LE edema Neuro: Alert, no focal deficits, moves all extremities, Skin: warm/dry OBJ DATA Labs CBC & Chem 7: 05/24/22 05:42 05/25/22 06:00 Labs: Abnormal Lab Results 05/25/22 05/25/22 05/24/22 06:00 06:00 08:25 WBC MCV MCH Immature Gran % (Auto) Neut % (Auto) Lymph % (Auto) Lymph # (Auto) [place] # (Auto) Immature Gran # Absolute Neutrophils POC VBG pH POC VBG pCO2 at Temp POC VBG pO2 POC VBG HCO3 POC VBG Total CO2 POC Venous O2 Sat POC VBG Base Excess VBG Lactic Acid Creatinine 0.4 L POC Creatinine Glucose 112 H POC Glucose POC WB Ioniz Calcium Phosphorus 2.2 L Total Bilirubin Direct Bilirubin 0.6 H GGT 115 H AST 70 H ALT 121 H Alkaline Phosphatase 314 H Lactate Dehydrogenase Total Protein 5.7 L Albumin 2.4 L Albumin/Globulin Ratio 0.7 L Vitamin B12 > 2000.0 H Procalcitonin 0.43 H 05/24/22 05/24/22 05/23/22 05:42 05:42 16:36 WBC MCV 100.8 H MCH 34.2 H Immature Gran % (Auto) 0.9 H Neut % (Auto) Lymph % (Auto) 13.0 L Lymph # (Auto) 1.34 L [place] # (Auto) 1.17 H Immature Gran # 0.09 H Absolute Neutrophils POC VBG pH POC VBG pCO2 at Temp POC VBG pO2 42 H POC VBG HCO3 POC VBG Total CO2 POC Venous O2 Sat 76.0 H POC VBG Base Excess VBG Lactic Acid Creatinine 0.4 L POC Creatinine Glucose 114 H POC Glucose POC WB Ioniz Calcium Phosphorus 1.9 L Total Bilirubin 3.7 H Direct Bilirubin 3.0 H GGT 136 H AST 162 H ALT 171 H Alkaline Phosphatase 337 H Lactate Dehydrogenase 261 H Total Protein Albumin 2.6 L Albumin/Globulin Ratio 0.7 L Vitamin B12 Procalcitonin 05/23/22 05/23/22 05/23/22 16:33 14:13 14:12 WBC MCV MCH Immature Gran % (Auto) Neut % (Auto) Lymph % (Auto) Lymph # (Auto) [place] # (Auto) Immature Gran # Absolute Neutrophils POC VBG pH 7.48 H POC VBG pCO2 at Temp 40.0 L POC VBG pO2 POC VBG HCO3 30.1 H POC VBG Total CO2 31.0 H POC Venous O2 Sat 77.0 H POC VBG Base Excess 7.0 H* VBG Lactic Acid 2.4 H Creatinine POC Creatinine 0.4 L Glucose POC Glucose 171 H POC WB Ioniz Calcium 1.07 L Phosphorus Total Bilirubin Direct Bilirubin GGT AST ALT Alkaline Phosphatase Lactate Dehydrogenase Total Protein Albumin Albumin/Globulin Ratio Vitamin B12 Procalcitonin 0.42 H 05/23/22 14:12 WBC 12.4 H MCV MCH Immature Gran % (Auto) 0.8 H Neut % (Auto) 83.2 H Lymph % (Auto) 5.8 L Lymph # (Auto) 0.72 L [place] # (Auto) 1.23 H Immature Gran # 0.10 H Absolute Neutrophils 10.28 H POC VBG pH POC VBG pCO2 at Temp POC VBG pO2 POC VBG HCO3 POC VBG Total CO2 POC Venous O2 Sat POC VBG Base Excess VBG Lactic Acid Creatinine POC Creatinine Glucose POC Glucose POC WB Ioniz Calcium Phosphorus Total Bilirubin Direct Bilirubin GGT AST ALT Alkaline Phosphatase Lactate Dehydrogenase Total Protein Albumin Albumin/Globulin Ratio Vitamin B12 Procalcitonin Meds: Medications Acetaminophen (Acetaminophen 325 Mg Tablet) 650 mg PO Q6HP PRN; Protocol PRN Reason: Per Pain Protocol/Fever > 101 Last Admin: 05/24/22 20:56 Dose: 650 mg Albuterol/Ipratropium (Ipratropium/Albuterol 3 Ml Ampul.Neb) 3 ml NEB Q4HP PRN PRN Reason: Shortness Of Breath Last Admin: 05/24/22 19:45 Dose: 3 ml Aspirin (Aspirin 81 Mg Tab.Chew) 81 mg PO DAILY [facility] Last Admin: 05/24/22 12:16 Dose: 81 mg Atorvastatin Calcium (Atorvastatin 20 Mg Tablet) 20 mg PO HS [facility] Last Admin: 05/24/22 19:25 Dose: Not Given Benzonatate (Benzonatate 100 Mg Capsule) 200 mg PO TIDP PRN PRN Reason: Cough Last Admin: 05/25/22 02:03 Dose: 200 mg Ceftriaxone Sodium (Ceftriaxone 1 Gm Vial) 1 gm IV Q24H [facility] Last Admin: 05/24/22 12:17 Dose: 1 gm Cyanocobalamin (Cyanocobalamin (Vitamin B-12) 500 Mcg Tablet) 500 mcg PO QDAY [facility] Last Admin: 05/24/22 12:16 Dose: 500 mcg Docusate Sodium (Docusate Sodium 100 Mg Capsule) 100 mg PO BID [facility] Last Admin: 05/24/22 20:56 Dose: 100 mg Potassium Chloride 40 meq/ (Dextrose) 520 mls @ 130 mls/hr IV UD PRN PRN Reason: Potassium < 3 Magnesium Sulfate (Magnesium Sulfate) 2 gm in 50 mls @ 50 mls/hr IV UD PRN PRN Reason: Magnesium </= 1.6 Azithromycin 500 mg/ Dextrose 250 mls @ 250 mls/hr IV Q24H [facility]; Protocol Stop: 05/25/22 11:59 Last Infusion: 05/24/22 13:23 Dose: Infused Labetalol HCl (Labetalol 5 Mg/Ml Ml) 0 mg IV Q2HP PRN PRN Reason: Hypertension Last Admin: 05/25/22 04:20 Dose: 10 mg Ondansetron HCl (Ondansetron 4 Mg/2 Ml Vial) 4 mg IV Q4HP PRN PRN Reason: Nausea And Vomiting Polyethylene Glycol (Polyethylene Glycol 3350 17 Gm Packet) 17 gm PO DAILYP PRN PRN Reason: Constipation Potassium Chloride (Potassium Chloride 20 Meq Tablet) 40 meq PO UD PRN PRN Reason: Potssium is 3-3.5 Potassium Chloride (Potassium Chloride 20 Meq Tablet) 40 meq PO UD PRN PRN Reason: Potassium < 3 Senna (Sennosides 1 Tablet) 2 tab PO DAILYP PRN PRN Reason: Constipation Sodium Chloride (0.9 % Sodium Chloride 10 Ml Syringe) 10 ml IV Q8 [facility] Last Admin: 05/25/22 04:22 Dose: 10 ml Verapamil HCl (Verapamil 120 Mg Tab.Xl.24h) 240 mg PO HS [facility] Last Admin: 05/24/22 20:56 Dose: 240 mg A/P Narrative A/P Narrative: A: *Acute hypoxic respiratory failure: 2/2 PNA -now on 0.5-1L NC *PNA b/l: -elevated pct, strep/rvp neg *Sepsis w/hyperlactatemia: -improving *Generalized weakness: 2/2 above *Volume depletion:improved *HTN/HLD: Blood pressure elevated on admit *Obesity: BMI 32, lifestyle modification education *Macrocytosis: b12/folate ok *Hypophosphatemia: *Transaminitis: liver us unremarkable, Hepatitis panel negative P: -Rocephin/azithromycin, pending SC, mrsa screen -pct pending f/u -O2 supplementation and wean as able -Pulmonary toilet, nebs -BC/chemistry follow-up, monitor replace electrolytes -Continue home verapamil, prn IV -cont home aspirin/statin -PT/OT -CM for likely placement -ppx: Lovenox Time Spent With Patient Time: Total time spent is greater than 50% in coordination of care (as documented) at patient's floor/unit and/or counseling patient: Total time spent with greater than 50% in coordination of care (as documented) at patient's floor/unit and/or counseling patient:: 35 - 50 minutes QUALITY VTE Deep Vein Thrombosis/Pulmonary Embolism Present on Admission: No
[2022-05-25] MEDS: DOCUSATE SODIUM 100 MG CAPSULE PO SCH ×2 (09:22→20:38)
[2022-05-25] MEDS: ASPIRIN 81 MG TAB.CHEW PO SCH (09:22)
[2022-05-25] MEDS: AZITHROMYCIN 500 MG in DEXTROSE 5% IN WATER 250 ML IV SCH (09:22)
[2022-05-25] MEDS: CYANOCOBALAMIN (VITAMIN B-12) 500 MCG TABLET PO SCH (09:22)
[2022-05-25] MEDS ORDERED: NEUTRA PHOS 1 PACKET PO ONE (09:34)
[2022-05-25] MEDS ORDERED: PHOSPHORUS 250 MG TABLET PO ONE (09:34)
[2022-05-25] MEDS: IPRATROPIUM/ALBUTEROL 3 ML AMPUL.NEB NEB PRN (11:45)
[2022-05-25] MEDS: cefTRIAXone 1 GM VIAL IV SCH (11:49)
[2022-05-25] MEDS: ATORVASTATIN 20 MG TABLET PO SCH (20:33)
[2022-05-25] MEDS: ACETAMINOPHEN 325 MG TABLET PO PRN (20:37)
[2022-05-25] MEDS: VERAPAMIL 120 MG TAB.XL.24H PO SCH (20:38)
[2022-05-26] MEDS: 0.9 % SODIUM CHLORIDE 10 ML SYRINGE IV SCH ×3 (05:43→21:59)
--- NOTE | 2022-05-26 07:37 | Internal Med Progress Note ---
SUBJECTIVE Subjective Patient information: Note initiated : 05/26/22 at 7:36 am Service Date, if different from initiated Date: [] Patient: Linden Galeana 86 y/o F admitted on 05/23/22 for Cough. Chief Complaint: [] Interval history: History of present illness: Ms. Galeana is a 86 year old F Presents the ED with weakness, shortness of breath, productive cough. Patient states that Thursday she started developing cold symptoms which had progressively gotten worse. She has developed cough productive yellow-green sputum, she developed shortness of breath and increasing weakness. She said family members have been ill recently as well. Work-up in the ED revealed bilateral pneumonia. She she had initial lactate of 2.4. She was hypoxic and 87%. She had a mild leukocytosis. Elevated BUN to creatinine ratio. And tachycardic. Patient started on IV fluids and antibiotics in ED. Follow-up lactate. 05/24 Had on and off sleep last night. Still requiring oxygen. She denies shortness of breath at rest still has productive cough. Transaminitis noted. Including hyperbilirubinemia mostly conjugated. Low Phos. Appears quite tired. 05/25 Patient still feels quite weak and fatigued. Minimal oxygen requirement. We will hopefully wean off today. Still productive cough. Poor sleep last night. Hypophosphatemia transaminitis mildly improved. Suspect patient will need rehab. 05/26 Patient seen today feeling a little better today. More awake and alert. Sats on 1 L nasal cannula she should be able to be weaned off to room air. Mild co ugh. No shortness of breath at rest. Review of Systems: denies headache/fever/chills/nausea/vomiting/chest or abdominal pain/diarrhea. Otherwise see above. Constitutional Vitals: Vital Signs Temp Pulse Resp BP Pulse Ox O2 Del Method O2 Flow Rate 98.3 F 77 14 148/58 96 1 05/26/22 07:10 05/26/22 07:10 05/26/22 07:10 05/26/22 07:10 05/26/22 07:10 05/26/22 07:10 05/26/22 07:10 Period Temp Pulse Resp BP Sys/Serrano Pulse Ox O2 Del Method O2 Flow Rate Last 24 Hr 97.5 F-98.4 F 77-91 135-169/58-95 94-97 Nasal Cannula- Nasal Cannula 1-1.5 Intake and Output 05/25/22 05/26/22 05/26/22 19:59 03:59 11:59 Intake Total 240 500 300 Output Total 3 2 Balance 237 498 300 Weight 88.36 kg Patient Weight 05/27/22 03:59 Weight 88.36 kg Intake & Output: Intake & Output 05/25/22 05/26/22 05/26/22 19:59 03:59 11:59 Intake Total 240 500 300 Output Total 3 2 Balance 237 498 300 Weight 88.36 kg Intake: Oral 240 500 300 Output: # of times incontinent of urine 3 2 Other: Meal Dinner Percent of Meal Consumed 25% Feeding Ability Assist with Tray Set Up Stool Size Smear Stool Color Brown Stool Consistency Soft Exam: General: Awake but appears weak/fatigued, No acute Distress Eyes/N/T: EOMI, Head/Neck: neck supple, CV: RRR, No murmurs, Pulm: Clear anteriorly, no wheezing today Abd: soft, nontender, +BS x4 Ext: no clubbing/cyanosis, mild b/l LE edema Neuro: Alert, no focal deficits, moves all extremities, Skin: warm/dry OBJ DATA Labs CBC & Chem 7: 05/24/22 05:42 05/26/22 06:05 Labs: Abnormal Lab Results 05/25/22 05/25/22 05/24/22 06:00 06:00 08:25 WBC MCV MCH Immature Gran % (Auto) Neut % (Auto) Lymph % (Auto) Lymph # (Auto) [place] # (Auto) Immature Gran # Absolute Neutrophils POC VBG pH POC VBG pCO2 at Temp POC VBG pO2 POC VBG HCO3 POC VBG Total CO2 POC Venous O2 Sat POC VBG Base Excess VBG Lactic Acid Creatinine 0.4 L POC Creatinine Glucose 112 H POC Glucose POC WB Ioniz Calcium Phosphorus 2.2 L Total Bilirubin Direct Bilirubin 0.6 H GGT 115 H AST 70 H ALT 121 H Alkaline Phosphatase 314 H Lactate Dehydrogenase Total Protein 5.7 L Albumin 2.4 L Albumin/Globulin Ratio 0.7 L Vitamin B12 > 2000.0 H Procalcitonin 0.43 H 05/24/22 05/24/22 05/23/22 05:42 05:42 16:36 WBC MCV 100.8 H MCH 34.2 H Immature Gran % (Auto) 0.9 H Neut % (Auto) Lymph % (Auto) 13.0 L Lymph # (Auto) 1.34 L [place] # (Auto) 1.17 H Immature Gran # 0.09 H Absolute Neutrophils POC VBG pH POC VBG pCO2 at Temp POC VBG pO2 42 H POC VBG HCO3 POC VBG Total CO2 POC Venous O2 Sat 76.0 H POC VBG Base Excess VBG Lactic Acid Creatinine 0.4 L POC Creatinine Glucose 114 H POC Glucose POC WB Ioniz Calcium Phosphorus 1.9 L Total Bilirubin 3.7 H Direct Bilirubin 3.0 H GGT 136 H AST 162 H ALT 171 H Alkaline Phosphatase 337 H Lactate Dehydrogenase 261 H Total Protein Albumin 2.6 L Albumin/Globulin Ratio 0.7 L Vitamin B12 Procalcitonin 05/23/22 05/23/22 05/23/22 16:33 14:13 14:12 WBC MCV MCH Immature Gran % (Auto) Neut % (Auto) Lymph % (Auto) Lymph # (Auto) [place] # (Auto) Immature Gran # Absolute Neutrophils POC VBG pH 7.48 H POC VBG pCO2 at Temp 40.0 L POC VBG pO2 POC VBG HCO3 30.1 H POC VBG Total CO2 31.0 H POC Venous O2 Sat 77.0 H POC VBG Base Excess 7.0 H* VBG Lactic Acid 2.4 H Creatinine POC Creatinine 0.4 L Glucose POC Glucose 171 H POC WB Ioniz Calcium 1.07 L Phosphorus Total Bilirubin Direct Bilirubin GGT AST ALT Alkaline Phosphatase Lactate Dehydrogenase Total Protein Albumin Albumin/Globulin Ratio Vitamin B12 Procalcitonin 0.42 H 05/23/22 14:12 WBC 12.4 H MCV MCH Immature Gran % (Auto) 0.8 H Neut % (Auto) 83.2 H Lymph % (Auto) 5.8 L Lymph # (Auto) 0.72 L [place] # (Auto) 1.23 H Immature Gran # 0.10 H Absolute Neutrophils 10.28 H POC VBG pH POC VBG pCO2 at Temp POC VBG pO2 POC VBG HCO3 POC VBG Total CO2 POC Venous O2 Sat POC VBG Base Excess VBG Lactic Acid Creatinine POC Creatinine Glucose POC Glucose POC WB Ioniz Calcium Phosphorus Total Bilirubin Direct Bilirubin GGT AST ALT Alkaline Phosphatase Lactate Dehydrogenase Total Protein Albumin Albumin/Globulin Ratio Vitamin B12 Procalcitonin Meds: Medications Acetaminophen (Acetaminophen 325 Mg Tablet) 650 mg PO Q6HP PRN; Protocol PRN Reason: Per Pain Protocol/Fever > 101 Last Admin: 05/25/22 20:37 Dose: 650 mg Albuterol/Ipratropium (Ipratropium/Albuterol 3 Ml Ampul.Neb) 3 ml NEB Q4HP PRN PRN Reason: Shortness Of Breath Last Admin: 05/25/22 11:45 Dose: 3 ml Aspirin (Aspirin 81 Mg Tab.Chew) 81 mg PO DAILY [facility] Last Admin: 05/25/22 09:22 Dose: 81 mg Atorvastatin Calcium (Atorvastatin 20 Mg Tablet) 20 mg PO HS [facility] Last Admin: 05/25/22 20:33 Dose: Not Given Benzonatate (Benzonatate 100 Mg Capsule) 200 mg PO TIDP PRN PRN Reason: Cough Last Admin: 05/25/22 18:01 Dose: 200 mg Ceftriaxone Sodium (Ceftriaxone 1 Gm Vial) 1 gm IV Q24H [facility] Last Admin: 05/25/22 11:49 Dose: 1 gm Cyanocobalamin (Cyanocobalamin (Vitamin B-12) 500 Mcg Tablet) 500 mcg PO QDAY [facility] Last Admin: 05/25/22 09:22 Dose: 500 mcg Docusate Sodium (Docusate Sodium 100 Mg Capsule) 100 mg PO BID [facility] Last Admin: 05/25/22 20:38 Dose: 100 mg Potassium Chloride 40 meq/ (Dextrose) 520 mls @ 130 mls/hr IV UD PRN PRN Reason: Potassium < 3 Magnesium Sulfate (Magnesium Sulfate) 2 gm in 50 mls @ 50 mls/hr IV UD PRN PRN Reason: Magnesium </= 1.6 Labetalol HCl (Labetalol 5 Mg/Ml Ml) 0 mg IV Q2HP PRN PRN Reason: Hypertension Last Admin: 05/25/22 17:58 Dose: 10 mg Ondansetron HCl (Ondansetron 4 Mg/2 Ml Vial) 4 mg IV Q4HP PRN PRN Reason: Nausea And Vomiting Polyethylene Glycol (Polyethylene Glycol 3350 17 Gm Packet) 17 gm PO DAILYP PRN PRN Reason: Constipation Potassium Chloride (Potassium Chloride 20 Meq Tablet) 40 meq PO UD PRN PRN Reason: Potssium is 3-3.5 Potassium Chloride (Potassium Chloride 20 Meq Tablet) 40 meq PO UD PRN PRN Reason: Potassium < 3 Senna (Sennosides 1 Tablet) 2 tab PO DAILYP PRN PRN Reason: Constipation Sodium Chloride (0.9 % Sodium Chloride 10 Ml Syringe) 10 ml IV Q8 [facility] Last Admin: 05/26/22 05:43 Dose: 10 ml Verapamil HCl (Verapamil 120 Mg Tab.Xl.24h) 240 mg PO HS [facility] Last Admin: 05/25/22 20:38 Dose: 240 mg A/P Narrative A/P Narrative: A: *Acute hypoxic respiratory failure: 2/2 PNA -now on 0.5-1L NC *PNA b/l: -elevated pct, strep/rvp neg *Sepsis w/hyperlactatemia: -improving *Generalized weakness: 2/2 above *Volume depletion:improved *HTN/HLD: Blood pressure elevated on admit *Obesity: BMI 32, lifestyle modification education *Macrocytosis: b12/folate ok *Hypophosphatemia: *Transaminitis: liver us unremarkable, Hepatitis panel negative P: -Rocephin/azithromycin, pending [place], mrsa screen neg -pct pending f/u -O2 supplementation and wean as able -Pulmonary toilet, nebs -BC/chemistry follow-up, monitor replace electrolytes -Continue home verapamil, prn IV -cont home aspirin/statin -PT/OT -CM for likely placement -ppx: Lovenox Time Spent With Patient Time: Total time spent is greater than 50% in coordination of care (as documented) at patient's floor/unit and/or counseling patient: Total time spent with greater than 50% in coordination of care (as documented) at patient's floor/unit and/or counseling patient:: 35 - 50 minutes QUALITY VTE Deep Vein Thrombosis/Pulmonary Embolism Present on Admission: No
[2022-05-26 07:49] LABS: Blood Urea Nitrogen 8 mg/dL (8-23); Calcium 8.8 mg/dL (8.6-10.4); Carbon Dioxide 32 mmol/L (22-30); Chloride 97 mmol/L (96-108); Glomerular Filtration Rate 95; Glucose 114 mg/dL (70-105)
[2022-05-26] MEDS: DOCUSATE SODIUM 100 MG CAPSULE PO SCH ×2 (08:11→21:54)
[2022-05-26] MEDS: ASPIRIN 81 MG TAB.CHEW PO SCH (08:11)
[2022-05-26] MEDS: CYANOCOBALAMIN (VITAMIN B-12) 500 MCG TABLET PO SCH (08:11)
--- NOTE | 2022-05-26 08:57 | EKG ---
[facility] Test Date: 2022-05-23 Pat Name: Linden Galeana Department: ED Room: Gender: Female [employer]: ADRIANA : [id number] Requested By: Tone Leos Order Number: [id number] Reading MD: Bishop Virgen M.D. Measurements Intervals [place] Rate: 91 P: 0 FL: 137 QRS: -51 QRSD: 143 T: -2 QT: 380 QTc: 469 Interpretive Statements Sinus rhythm RBBB and LAFB Probable left ventricular hypertrophy Electronically Signed On 05-26-2022 8:56:43 PST by Bishop Virgen M.D. /[email or web address]/[id number]
[2022-05-26] MEDS ORDERED: ENOXAPARIN 40 MG/0.4 ML SYRINGE SQ SCH (09:55)
[2022-05-26] MEDS: cefTRIAXone 1 GM VIAL IV SCH (10:29)
[2022-05-26] MEDS: ENOXAPARIN 40 MG/0.4 ML SYRINGE SQ SCH (10:29)
--- NOTE | 2022-05-26 10:37 | XRay Report ---
INDICATION: f/u PNA TECHNIQUE: AP portable semiupright chest x-ray COMPARISON: Previous examination dated 05/23/2022. Previous chest CT scan dated 11/11/2011 FINDINGS: Lungs:Persistent mild parenchymal density of both lung bases consistent with atelectasis or pneumonia. Mid and upper lungs are negative. No significant interval change. Heart, vascular:No significant cardiomegaly. Pulmonary vascularity is normal. No pulmonary edema or pulmonary congestion Mediastinum, bernardo:No mediastinal widening. No hilar mass Pleura:No pleural fluid. No pleural-based mass or calcification Skeletal:Negative. IMPRESSION: 1. Mild bibasilar atelectasis or infiltrate 2. No significant interval change since 05/23/2022 Interpreted and Authenticated by: Bishop Camejo 05/26/22
[2022-05-26] MEDS: BENZONATATE 100 MG CAPSULE PO PRN (15:04)
[2022-05-26] MEDS: LABETALOL 5 MG/ML ML IV PRN ×2 (15:04→22:04)
[2022-05-26] MEDS: ACETAMINOPHEN 325 MG TABLET PO PRN (17:45)
[2022-05-26] MEDS ORDERED: ROSUVASTATIN 10 MG TABLET PO SCH (21:00)
[2022-05-26] MEDS: VERAPAMIL 120 MG TAB.XL.24H PO SCH (21:54)
[2022-05-27] MEDS: IPRATROPIUM/ALBUTEROL 3 ML AMPUL.NEB NEB PRN (06:11)
[2022-05-27] MEDS: 0.9 % SODIUM CHLORIDE 10 ML SYRINGE IV SCH (06:38)
[2022-05-27] MEDS: DOCUSATE SODIUM 100 MG CAPSULE PO SCH (09:01)
[2022-05-27] MEDS: ASPIRIN 81 MG TAB.CHEW PO SCH (09:01)
[2022-05-27] MEDS: ENOXAPARIN 40 MG/0.4 ML SYRINGE SQ SCH (09:01)
[2022-05-27] MEDS: CYANOCOBALAMIN (VITAMIN B-12) 500 MCG TABLET PO SCH (09:01)
[2022-05-27] MEDS: cefTRIAXone 1 GM VIAL IV SCH (09:01)
[2022-05-27] MEDS: BENZONATATE 100 MG CAPSULE PO PRN (11:14)
[2022-05-27] MEDS: LABETALOL 5 MG/ML ML IV PRN (11:22)
--- NOTE | 2022-05-27 12:06 | Discharge Summary ---
Discharge Provider Provider IMPORTANT FOLLOW-UP INFORMATION FOR PCP: Patient information: Note initiated : 05/27/22 at 12:05 pm Service Date, if different from initiated Date: [] Patient: Linden Galeana 86 y/o F admitted on 05/23/22 for Cough. Chief Complaint: [] Date of admission: 05/23/22 19:00 Discharge date: 05/27/22 Primary care physician: TERRIE Fairbanks Attending physician on admission: Foreign [place] Consults: 05/23/22 Consult to Physician [CONS] Stat Comment: Consulting Provider: [facility] [place] Reason For Exam: Physician to Consult 05/27/22 10:43 Consult to Physician [CONS] Routine Comment: snf referral Consulting Provider: Carrie Gutiérrez of [place] Reason For Exam: Physician to Consult Attending physician on discharge: Chi Livier Pui COURSE Hospital Course Hospital course: Ms. Galeana is a 86 year old F Presents the ED with weakness, shortness of breath, productive cough. Patient states that Thursday she started developing cold symptoms which had progressively gotten worse. She has developed cough productive yellow-green sputum, she developed shortness of breath and increasing weakness. She said family members have been ill recently as well. Work-up in the ED revealed bilateral pneumonia. She she had initial lactate of 2.4. She was hypoxic and 87%. She had a mild leukocytosis. Elevated BUN to creatinine ratio. And tachycardic. Patient started on IV fluids and antibiotics in ED. Follow-up lactate. 05/24 Had on and off sleep last night. Still requiring oxygen. She denies shortness of breath at rest still has productive cough. Transaminitis noted. Including hyperbilirubinemia mostly conjugated. Low Phos. Appears quite tired. 05/25 Patient still feels quite weak and fatigued. Minimal oxygen requirement. We will hopefully wean off today. Still productive cough. Poor sleep last night. Hypophosphatemia transaminitis mildly improved. Suspect patient will need rehab. 05/26 Patient seen today feeling a little better today. More awake and alert. Sats on 1 L nasal cannula she should be able to be weaned off to room air. Mild cough. No shortness of breath at rest. 05/27: Discharged to SNF. Discharge diagnosis: pneumonia Time Spent with Patient Time attestation: Total time spent providing and/or coordinating discharge services: Time spent: Less than 30 minutes EXAM Constitutional Vitals: Temp Pulse Resp BP Pulse Ox O2 Del Method O2 Flow Rate 36.4 C 76 16 159/72 96 1 05/27/22 11:15 05/27/22 11:15 05/27/22 11:15 05/27/22 11:15 05/27/22 11:15 05/27/22 11:15 05/27/22 11:15 General appearance: cooperative and no acute distress Head Head exam: Present atraumatic and normocephalic Eye Eye exam: Present EOMI and PERRL ENT ENT exam: Present mucous membranes moist, normal exam and normal external ear exam Neck Neck exam: Present normal inspection; Absent lymphadenopathy, tenderness or thyromegaly Respiratory Respiratory exam: Absent accessory muscle use, respiratory distress or wheezes Cardiovascular Cardiovascular exam: Present normal rate and rhythm; Absent JVD GI/Abdominal GI/Abdominal exam: Present normal bowel sounds and soft; Absent organomegaly or tenderness Extremities Exam Extremities exam: Present full ROM, normal capillary refill and normal inspection; Absent tenderness Neurological Exam Neurological exam: Present alert, CN II-XII intact and oriented X3; Absent motor sensory deficit Psychiatric Psychiatric exam: Present normal affect and normal mood; Absent anxious or depressed Skin Skin exam: Present dry and intact Discharge Plan Patient/Caregiver Discharge Instructions Activity: increase activity as tolerated Diet: Regular Diet Instructions: Pneumonia (DC) Prescriptions: Continued rosuvastatin 10 mg tablet See Rx Instructions .ROUTE .COMPLEX Qty: 90 3RF Dose Instruction: TAKE ONE TABLET BY MOUTH AT BEDTIME Rx Instructions: TAKE ONE TABLET BY MOUTH AT BEDTIME aspirin 325 mg tablet 325 mg PO QDAY flaxseed oil 1,000 mg capsule 1,000 mg PO 5XD cyanocobalamin (vitamin B-12) [Vitamin B-12] 500 mcg tablet 500 mcg PO QDAY (DME) Poise Pads See Rx Instructions .Route .MEDSUPPLY Qty: 180 3RF Rx Instructions: Change when soiled verapamil 240 mg tablet extended release 240 mg PO QPM PreserVision AREDS [id number],320-226-200 [id number] capsule 1 cap PO BID PreserVision AREDS 14,320-226-200 [id number] Capsule 1 cap PO DAILY Follow Up Plan Follow up with: Sweikert-Burgess,Moriah, [employer]ING [employer] MANAGER [Primary Care Provider] - (Follow-up as needed. Please contact office to schedule .) Patient Disposition: Xfer SNF Prognosis: Fair Rehab Potential: Fair I certify that the patient requires SNF services: Yes Overall status at discharge: patient is progressing back to baseline Discharge Orders: Discharge Order (Routine); Ordered 05/27/22 Ordered By: Sourav KELLY VTE Deep Vein Thrombosis/Pulmonary Embolism Present on Admission: No
[2022-05-27] MEDS ORDERED: hydrALAZINE 20 MG/ML VIAL IV SCH (13:00)
== END 2022-05-27 13:16 | DRG 871 ==
LOC: ED 13:16 → MEDSUR 18:59
PROVIDERS: ADMIT Internal Medicine; ATTEND Internal Medicine